=== PATIENT | female | born 1980 | race Caucasian/White ===

== ENCOUNTER → 2019-10-08 13:56 | Outpatient (CLI) | payer OTHER, SELFPAY ==
[2019-10-11 10:19] LABS: COVID19 Sendout Not Detected (Not Detected)
== END ==
PROVIDERS: Visit Provider Family Medicine
DX: R05 Cough (principal)
CPT/HCPCS: 87635

== ENCOUNTER → 2020-08-23 10:22 | Outpatient (CLI) | payer MEDICARE, SELFPAY ==
[2020-08-23] MEDS: COVID-19 VACC #1, MRNA(MOD) 100 MCG/0.5 ML VIAL IM (10:36)
== END ==
PROVIDERS: Visit Provider Internal Medicine
DX: Z23 Encounter for immunization (principal)
CPT/HCPCS: 0011A; 91301

== ENCOUNTER → 2020-09-21 10:12 | Outpatient (CLI) | payer MEDICARE, SELFPAY ==
[2020-09-21] MEDS: COVID-19 VACC #2, MRNA(MOD) 100 MCG/0.5 ML VIAL IM (10:20)
== END ==
PROVIDERS: Visit Provider Internal Medicine
DX: Z23 Encounter for immunization (principal)
CPT/HCPCS: 0012A; 91301

== ENCOUNTER → 2021-05-29 09:35 | Outpatient (CLI) | payer OTHER, SELFPAY ==
[2021-05-29 10:08] LABS: COVID19 -Nasal RAPID Negative (Negative)
== END ==
PROVIDERS: Visit Provider Nurse Practitioner Family
DX: Z20.822 Contact with and (suspected) exposure to COVID-19 (principal)
CPT/HCPCS: 87635

== ENCOUNTER 2022-10-13 14:07 | Emergency (ER) | payer OTHER, SELFPAY ==
[2022-10-13 14:10] VITALS: BP 136/60; PULSE 60; RESP 18; TEMP 36.6; O2SAT 100; BMI 46.5
--- NOTE | 2022-10-13 14:17 | DI.RAD.S_ITS ---
PROCEDURE: XR SHOULDER LT MIN 2V INDICATIONS: fall with pain TECHNIQUE: 3 views of the shoulder were acquired. COMPARISON: None. FINDINGS: Bones: No fractures or dislocations. No suspicious bony lesions. Visualized ribs appear intact. Soft tissues: No suspicious soft tissue calcifications. IMPRESSION: No definite acute radiographic abnormality. If pain persists with conservative management, consider repeat radiographs in 10-14 days or cross sectional imaging such as CT or MRI for further assessment. Dictated by: Migue Montelongo M.D. on 10/13/2022 at 14:40 Approved by: Migue Montelongo M.D. on 10/13/2022 at 14:40
--- NOTE | 2022-10-13 14:17 | DI.RAD.S_ITS ---
PROCEDURE: XR KNEE LT 3V INDICATIONS: fall with pain TECHNIQUE: 3 views of the knee were acquired. COMPARISON: None. FINDINGS: Bones: No fractures or dislocations. No suspicious bony lesions. Soft tissues: Moderate joint effusion. No suspicious soft tissue calcifications. IMPRESSION: No definite acute radiographic abnormality. If pain persists with conservative management, consider repeat radiographs in 10-14 days or cross sectional imaging such as CT or MRI for further assessment. Dictated by: Migue Montelongo M.D. on 10/13/2022 at 14:39 Approved by: Migue Montelongo M.D. on 10/13/2022 at 14:40
--- NOTE | 2022-10-13 14:17 | DI.CT.S_ITS ---
PROCEDURE: CT HEAD/BRAIN WO CON INDICATIONS: fall with head injury, bleeding dyscrasia TECHNIQUE: Noncontrast 4.5 mm thick angled axial sections acquired from the foramen magnum to the vertex, with coronal and sagittal reformats. For radiation dose reduction, the following was used: automated exposure control, adjustment of mA and/or kV according to patient size. COMPARISON: Head CT without, 01/02/2016. FINDINGS: Image quality: Excellent. CSF spaces: Basal cisterns are patent. No extra-axial fluid collections. Ventricles are normal in size and shape. Brain: No midline shift. No intracranial masses or hemorrhage. Simon-white matter interface is normal. Skull and face: Calvarium and visualized facial bones are intact, without suspicious lesions. Sinuses: Visualized sinuses and mastoids are clear. IMPRESSION: 1. No acute intracranial abnormalities. Dictated by: Kevin Ospina M.D. on 10/13/2022 at 15:17 Approved by: Kevin Ospina M.D. on 10/13/2022 at 15:18
--- NOTE | 2022-10-13 14:17 | DI.CT.S_ITS ---
PROCEDURE: CT CERVICAL SPINE WO CON INDICATIONS: fall with head injury TECHNIQUE: Noncontrast 3 mm thick sections acquired from the skull base to the T4 level. Sagittal and coronal reformats were then constructed. For radiation dose reduction, the following was used: automated exposure control, adjustment of mA and/or kV according to patient size. COMPARISON: [facility], CT, CT BRAIN WO CON, 01/02/2016, 14:03. [facility], CT, CT HEAD/BRAIN WO CON, 10/13/2022, 14:45. FINDINGS: Image quality: Excellent. Bones: No fractures or dislocations. Visualized superior ribs are intact. Soft tissues: Prevertebral soft tissues are normal in thickness. No paravertebral hematomas. No apical pneumothoraces. IMPRESSION: 1. No cervical spine fractures. Dictated by: Kevin Ospina M.D. on 10/13/2022 at 15:19 Approved by: Kevin Ospina M.D. on 10/13/2022 at 15:21
--- NOTE | 2022-10-13 18:37 | ED.FALL ---
HPI - Fall <Lola Bush PA-C - Last Filed: 10/13/22 18:45> General Chief Complaint: Fall Stated Complaint: fell, left side body pain Time Seen by Provider: 10/13/22 14:17 Source: patient Mode of arrival: Ambulatory History of Present Illness HPI Narrative: 42-year-old female with von Willebrand's disease presents to the ED status post a fall sustained just prior to arrival. Patient states she is been camping, tripped over the edge of her tend causing her to fly little bit in the air and landed on her left side. Patient endorses left shoulder and left knee pain. Patient suspects she might have bumped her head a little bit as well, however denies loss of consciousness. Patient denies nausea, vomiting. Related Data Home Medications Medication Instructions Recorded Confirmed bupropion HCl 300 mg 24 hr tablet, 450 mg PO QAM 05/29/21 05/29/21 extended release (Wellbutrin XL) gabapentin 100 mg capsule 100 mg PO DAILY 05/29/21 05/29/21 hydroxyzine HCl 25 mg tablet 25 mg PO BEDTIME 05/29/21 05/29/21 topiramate 50 mg tablet (Topamax) 50 mg PO BID 05/29/21 05/29/21 Previous Rx's Medication Instructions Recorded fluconazole 150 mg tablet 150 mg PO ONCE #1 tab 05/29/21 Allergies Allergy/AdvReac Type Severity Reaction Status Date / Time citric acid [From DDAVP] Allergy Verified 10/13/22 14:16 desmopressin [From DDAVP] Allergy Verified 10/13/22 14:16 sodium phosphate [From DDAVP] Allergy Verified 10/13/22 14:16 Review of Systems <Lola Bush PA-C - Last Filed: 10/13/22 18:45> Review of Systems ROS Unobtainable: All systems reviewed & are unremarkable except as noted in HPI and below Constitutional Constitutional: Denies chills, Denies fatigue, Denies fever(s), Denies frequent falls, Denies lethargy and Denies weakness Eyes Eyes: Denies change in vision, Denies eye discharge, Denies irritation and Denies loss of vision ENT Ears, Nose, Mouth, and Throat: Denies change in voice, Denies dizziness, Denies neck pain, Denies sore throat and Denies throat swelling Cardiovascular Cardiovascular: Denies chest pain, Denies irregular heart rhythm, Denies lightheadedness, Denies palpitations, Denies dyspnea, Denies dyspnea on exertion and Denies orthopnea Respiratory Respiratory: Denies cough, Denies dyspnea, Denies dyspnea on exertion and Denies wheezing Gastrointestinal Gastrointestinal: Denies abdominal pain, Denies change in bowel habits, Denies diarrhea, Denies nausea and Denies vomiting Genitourinary Genitourinary: Denies hematuria, Denies flank pain, Denies urinary incontinence and Denies urinary urgency Musculoskeletal Musculoskeletal: Denies back pain, Denies muscle weakness, Denies neck pain, Denies numbness and Denies tingling Comments: Left knee and left shoulder pain Integumentary/Breasts Skin/Breast: Denies pruritus, Denies erythema, Denies rash and Denies wounds Neurologic Neurologic: Denies behavioral changes, Denies confusion, Denies dizziness, Denies frequent falls, Denies loss of vision, Denies numbness, Denies tingling and Denies weakness Psychiatric Psychiatric: Denies anxiety, Denies behavioral changes, Denies confusion, Denies depression, Denies homicidal ideation and Denies suicidal ideation Endocrine Endocrine: Denies fatigue, Denies flushing and Denies palpitations Hematologic/Lymphatic Hematologic/Lymphatic: Denies easy bruising Allergic/Immunologic Allergic/Immunologic: Denies urticaria, Denies throat swelling and Denies wheezing Patient History <Lola Bush PA-C - Last Filed: 10/13/22 18:45> Social History Smoking Status: Former smoker Smoking Status: Former smoker Substance Use Type: marijuana Exam <Lola Bush PA-C - Last Filed: 10/13/22 18:45> Narrative Exam Narrative: Const General:?cooperative, healthy appearing and comfortable [facility] Head:?normal to inspection Ears:?hearing grossly normal bilaterally Nose:?external nose normal Face and sinus:?normal facial exam and sinuses nontender Mouth:?oral mucosae normal Throat:?posterior oropharynx normal Eyes General:?appearance normal, both eyes and all related structures Neck Neck:?normal visual inspection and no lymphadenopathy noted Resp Effort & Inspection:?normal respiratory effort Auscultation:?clear to auscultation bilaterally Cardio Rate:?regular rate Rhythm:?regular rhythm Musculoskeletal Mild abrasion and bruising seen on left kneecap. Mildly tender to palpation. Left shoulder is also tender to palpation. No bruising of the left shoulder. There is good range of motion of left arm and left leg. Strength and sensation is intact. Patient appears neurovascularly intact. Neuro General:?patient alert, patient awake and patient oriented x3 Initial Vital Signs Initial Vital Signs: Vital Signs Temperature 98 F 10/13/22 14:10 Pulse Rate 60 10/13/22 14:10 Respiratory Rate 18 10/13/22 14:10 Blood Pressure 136/60 10/13/22 14:10 Pulse Oximetry 100 10/13/22 14:10 Oxygen Delivery Method Room Air 10/13/22 14:10 <Bc Sims DO - Last Filed: 10/16/22 14:15> Initial Vital Signs Initial Vital Signs: Vital Signs Temperature 98 F 10/13/22 14:10 Pulse Rate 60 10/13/22 14:10 Respiratory Rate 18 10/13/22 14:10 Blood Pressure 136/60 10/13/22 14:10 Pulse Oximetry 100 10/13/22 14:10 Oxygen Delivery Method Room Air 10/13/22 14:10 Course <Lola Bush PA-C - Last Filed: 10/13/22 18:45> Orders Ordered: Discontinued Medications Ketorolac Tromethamine (Ketorolac 30 Mg/Ml Vial) 30 mg IM NOW ONE Stop: 10/13/22 18:35 Last Admin: 10/13/22 18:41 Dose: 30 mg Documented By: MICHEL Vital Signs Vital signs: Vital Signs - 8 hr 10/13/22 14:10 Temperature 98 F Pulse Rate 60 Respiratory Rate 18 Blood Pressure 136/60 Pulse Oximetry 100 Oxygen Delivery Method Room Air <Bc Sims DO - Last Filed: 10/16/22 14:15> Orders Ordered: Discontinued Medications Ketorolac Tromethamine (Ketorolac 30 Mg/Ml Vial) 30 mg IM NOW ONE Stop: 10/13/22 18:35 Last Admin: 10/13/22 18:41 Dose: 30 mg Documented By: MICHEL Vital Signs Vital signs: Vital Signs - 8 hr 10/13/22 14:10 Temperature 98 F Pulse Rate 60 Respiratory Rate 18 Blood Pressure 136/60 Pulse Oximetry 100 Oxygen Delivery Method Room Air MDM - Fall <SEA Fajardo Last Filed: 10/13/22 18:45> MDM Narrative Medical decision making narrative: 42-year-old female with von Willebrand's disease presents to the ED status post a fall sustained just prior to arrival. Concern for intracranial bleed versus fracture/dislocation versus musculoskeletal sprain/strain. Obtained CT head, CT C-spine, x-ray left shoulder, x-ray left knee. All imaging negative for acute findings. Discussed findings with patient. Recommend lidocaine patches, ibuprofen, Tylenol for symptoms. Gave patient ketorolac for pain in the ED. recommend ice for the 1st 24 hours, followed by heat. Recommend PCP follow-up as soon as possible. ED return precautions discussed with patient. Patient verbalized understanding. Medical records reviewed: Yes Discharge Plan Departure Patient Disposition: Home Clinical Impression: Fall Instructions: DI for Shoulder Pain, DI for Knee Pain Activity Restrictions/Additional Instructions: You were evaluated in the ED today for a fall. The x-ray of your knee and shoulder did not show any fractures or dislocations. The CT head and CT C-spine did not show any acute findings either. Your symptoms are likely due to a contusion of your knee and shoulder. You may apply Salonpas patches, take Tylenol and ibuprofen for the pain. You can ice the injuries for the 1st 24 hours, transitioned to heat after that. Return to the ED if you experience any numbness, tingling, weakness. Prescriptions: No Action bupropion HCl [Wellbutrin XL] 300 mg tablet extended release 24 hr 450 mg PO QAM hydroxyzine HCl 25 mg tablet 25 mg PO BEDTIME topiramate [Topamax] 50 mg tablet 50 mg PO BID gabapentin 100 mg capsule 100 mg PO DAILY fluconazole 150 mg tablet 150 mg PO ONCE Qty: 1 0RF Rx Instructions: as a single dose Referrals: Rose Jones PA-C [Primary Care Provider] - Stand Alone Forms: Patient Portal/API <Bc Sims DO - Last Filed: 10/16/22 14:15> Cosign ED Attending Cosignature Attestation: I was immediately available in the department for consultation. Documentation has been reviewed. I agree with assessment and plan.
[2022-10-13] MEDS: KETOROLAC 30 MG/ML VIAL IM (18:41)
[2022-10-13 18:46] VITALS: BP 131/73; PULSE 59; RESP 16; O2SAT 100
== END 2022-10-13 18:47 | disposition home or self-care (01) ==
PROVIDERS: Emergency Provider Student in an Organized Health Care Education/Training Program; PCP Physician Assistant
DX: M25.512 Pain in left shoulder (principal); M25.562 Pain in left knee; W01.0XXA Fall on same level from slipping, tripping and stumbling without subsequent striking against object, initial encounter
CPT/HCPCS: 70450; 72125; 73030; 73562; 99283; J1885